=== PATIENT | male | born 1975 | race Caucasian/White ===

== ENCOUNTER 2025-02-12 07:36 | Emergency (ER) | payer SELFPAY ==
[~2025-02-12] VITALS: Ht 177.8 cm; Wt 95.3 kg
[2025-02-12 07:38] VITALS: BP 131/93
[2025-02-12] MEDS ORDERED: LIDOCAINE 1%-EPI 1:100,000 20 ML VIAL ONE (07:49)
[2025-02-12] MEDS ORDERED: LIDOCAINE 2%-EPI 1:100,000 20 ML VIAL ONE (08:00)
[2025-02-12] MEDS ORDERED: ACETAMINOPHEN 500 MG TABLET ONE (08:00)
[2025-02-12] MEDS ORDERED: IBUPROFEN 200 MG TABLET ONE (08:02)
[2025-02-12] MEDS: LIDOCAINE 2%-EPI 1:100,000 20 ML VIAL IJ ONE (08:02)
[2025-02-12] MEDS: IBUPROFEN 200 MG TABLET PO ONE (08:03)
[2025-02-12] MEDS: ACETAMINOPHEN 500 MG TABLET PO ONE (08:03)
[2025-02-12] MEDS ORDERED: NEOMY/BACITRA/POLYMYXIN B OINT UD PACKET TP ONE ×2 (08:31→09:45)
[2025-02-12 09:16] VITALS: BP 128/88; O2SAT 96
== END 2025-02-12 08:45 | disposition home or self-care (01) ==
LOC: ER 07:36
DX: S01.01XA Laceration without foreign body of scalp, initial encounter (principal); Z88.7 Allergy status to serum and vaccine; R51.9 Headache, unspecified; X58.XXXA Exposure to other specified factors, initial encounter; Y93.89 Activity, other specified; Y92.89 Other specified places as the place of occurrence of the external cause; Y99.9 Unspecified external cause status
CPT/HCPCS: 12002; 70450; 99284; J3490; A4606; A4663; A9150